=== PATIENT | female | born 1975 | race Caucasian/White ===

== ENCOUNTER 2018-06-25 19:53 | Emergency (ER) | payer SELFPAY | END 2018-06-25 21:21 | disposition home or self-care (01) | LOC: ERS 19:53 | DX: J30.9 Allergic rhinitis, unspecified (principal); H65.93 Unspecified nonsuppurative otitis media, bilateral; Z71.6 Tobacco abuse counseling; F17.200 Nicotine dependence, unspecified, uncomplicated | CPT/HCPCS: 99406 ==

== ENCOUNTER 2018-09-02 08:06 | Emergency (ER) | payer SELFPAY ==
[2018-09-02] MEDS ORDERED: Ketorolac Tromethamine 30 MG/ML VIAL ONE (09:21)
[2018-09-02] MEDS ORDERED: Azithromycin 250 MG TAB ONE (09:21)
[2018-09-02] MEDS ORDERED: Lidocaine 1% PF 5 ML VIAL ONE (09:21)
[2018-09-02] MEDS ORDERED: cefTRIAXone\\ROCEPHIN 250 MG VIAL ONE (09:21)
[2018-09-02] MEDS ORDERED: Dexamethasone 10 MG/ML VIAL ONE (09:21)
[2018-09-02 09:57] LABS: Bilirubin Negative (Negative); Blood, Urine Negative (Negative); Clarity CLOUDY (Clear); Glucose, Urine (Dipstick) Negative (Negative); Leukocyte Small (Negative); Nitrite Negative (Negative); Protein, Urine (Dipstick) Negative (Neg-Trace); Urobilinogen 0.2 mg/dL (0.2-1.0); pH, Urine 5.5 (5.0-9.0)
[2018-09-02 10:00] LABS: Bacteria/HPF None Seen HPF (None Seen); Hyaline Casts/LPF 0-3 HYALINE CAST LPF (0-3 Hyaline); Pathc Cast-AUWi Flag 0.87 (0-2.49)
[2018-09-03 22:26] LABS: Chlamydia by PCR DETECTED (NotDetected); GC by PCR Not Detected (NotDetected)
== END 2018-09-02 10:31 | disposition home or self-care (01) ==
LOC: ERS 08:06
DX: J01.90 Acute sinusitis, unspecified (principal); F17.210 Nicotine dependence, cigarettes, uncomplicated; Z20.2 Contact with and (suspected) exposure to infections with a predominantly sexual mode of transmission; Z79.899 Other long term (current) drug therapy
CPT/HCPCS: 81003; 81015; 87491; 87591; 96372; J0696; J1100; J1885; J2001